=== PATIENT | female | born 1960 ===

== ENCOUNTER 2025-10-04 11:38 | Outpatient (REF) | payer OTHER, SELFPAY | END 2025-10-04 11:39 | disposition home or self-care (01) | LOC: HO.HPHYSR 11:38 | PROVIDERS: PCP Internal Medicine; Visit Provider Physical Medicine & Rehabilitation | DX: M54.16 Radiculopathy, lumbar region (principal) | CPT/HCPCS: 64483; J2003; J3301; Q9967 ==

== ENCOUNTER 2025-10-04 11:38 | Outpatient (AMB) | payer OTHER, SELFPAY ==
[2025-10-04 11:40] VITALS: BP 114/88; PULSE 79; TEMP 36.6; BMI 26.6
--- NOTE | 2025-10-04 11:40 | A.PHYSOV_ITS ---
Vital Signs 10/04/25 11:40 Height 5 ft 5 in Weight 160 lb BMI 26.6 BP 114/88 Pulse 79 Temp 97.8 F Intake Visit Reasons: Bilateral Lumbar Transforaminal Epidural L2 Intake Note: Patient is a 65 year old female in office today bilateral L2 transforaminal epidural injection. [employer] [place] Required: No Allergies morphine Allergy (Unknown, Verified 10/04/25 11:39) Unknown pollen extracts Allergy (Unknown, Verified 10/04/25 11:39) Unknown PFSH Medical History (Updated 10/04/25 @ 12:07 by Teofilo James DO) Lumbar radiculitis Surgical History (Updated 10/04/25 @ 11:44 by Caitie Hassan MA) History of tonsillectomy H/O: hysterectomy History of back surgery (Unknown) Social History (Updated 10/04/25 @ 11:45 by Caitie Hassan MA) Household Members Other:: Alcohol intake: current Alcohol intake frequency: 0-2 drinks per day Patient Tobacco Use Status: Former Tobacco user Use of substances other than those prescribed or required for medical reasons: No Substance Use Type: Marijuana Current occupational status: retired Physical Exam Vital Signs: Last Vital Signs Temp 97.8 F 10/04/25 11:40 Pulse 79 10/04/25 11:40 BP 114/88 10/04/25 11:40 BMI result Body Mass Index 26.6 Assessment & Plan Assessment & Plan (1) Lumbar radiculitis: Code(s): M54.16 - Radiculopathy, lumbar region Category: Medical Orders: Orders FL Gd Lumbar Transforaminal In Today M54.16 - Radiculopathy, lumbar region AMB Lumbar transforaminal Epidural Steroid Injection Today M54.16 - Radiculopathy, lumbar region Medications: New Kenalog (triamcinolone acetonide) 80 mg (2 mL) epidural ONCE 2 mL 0RF NS M54.16 - Radiculopathy, lumbar region Omnipaque 300 (iohexol) 3 mL epidural ONCE 10 mL 0RF NS M54.16 - Radiculopathy, lumbar region lidocaine (PF) 50 mg (5 mL) epidural ONCE 2 mL 0RF M54.16 - Radiculopathy, lumbar region Coding Diagnoses Lumbar radiculitis M54.16
--- OUTSIDE RECORDS SUMMARY | 2025-10-04 12:26 | XMS_ITS | Clinical Summary ---
Author Organization [facility] [address] [facility] Address [address] [place] [address] Phone Care Team Providers Care Blemish Remover Name Role Phone Haley Riggins MD Primary Care Prov ider Allergies Active Allergy Reactions Criticality Noted Date Comments Morphine 09/20/2017 Other Reaction(s): Rash/Dermatitis Pollen Extracts 08/25/2017 Medications cholecalciferol (VITAMIN D-3) 50 mcg (2,000 unit) capsule Take 2 capsules (4,000 Units total) by mouth 1 (one) time each day. Active chromium picolinate 400 mcg tablet Take 2 Tabs by mouth daily. Active cinnamon bark (CINNAMON ORAL) Take by mouth. Active diclofenac (Voltaren Arthritis Pain) 1 % topical gel Apply 2 g to affected area four times daily 0 Active flaxseed oiL oil Take 1 Cap by mouth daily. Active glucosamine-cho ndroit-vit C-Mn 500-400 mg capsule Take 1 capsule by mouth daily. Active LORATADINE-PSEU DOEPHEDRINE ORAL Take by mouth. Activ e magnesium aspart,citrate, oxide (Triple Magnesium Complex) 400 mg magnesium capsule Take 1 capsule by mouth 1 (one) time each day. Active multivitamin with iron Take 1 tablet by mouth daily. Active omeprazole (PriLOSEC) [address] capsule Take 1 capsule (20 mg total) by mouth 1 (one) time each day. 4 Active turmeric root extract 500 mg capsule Take 1 capsule by mouth 1 (one) time each day. Active azelastine (ASTELIN) 137 mcg (0.1 %) nasal spray Administer 1 spray into each nostril 2 (two) times a day. Use in each nostril as directed 30 mL 12 4 10/26/20 25 Active melatonin 3 mg tablet Take by mouth. Activ e sertraline (ZOLOFT) 50 mg tablet Take 1 tablet (50 mg total) by mouth 1 (one) time each day. 30 each 11 5 02/20/20 26 Active atorvastatin (LIPITOR) 10 mg tablet Take 1 tablet (10 mg total) by mouth 1 (one) time each day. 30 each 5 5 12/08/19 26 Active meloxicam (MOBIC) 15 mg tablet TAKE ONE TABLET BY MOUTH EVERY DAY 90 tablet 1 5 Active Active Problems Problem Noted Date Diagnosed Date Hypercholesterolemia 06/13/2025 Tinnitus of right ear 09/12/2023 Overview (09/22/2024): With sudden hearing loss in the right ear evaluated by ear nose and throat had steroid injections Obesity 07/13/2019 Lumbar radiculopathy, chronic 06/02/2018 Allergic rhinitis 08/25/2017 Obstructive sleep apnea 08/25/2017 Overview (09/22/2024): [facility] Polysomnogram: Date 09/04/2017; SE 80%; SM 82%; REM 6%; RDI 30 (AHI 20), worse in nonREM (RDI 31 - AHI 21), Central apneas 0; Obstructive apneas 75; Mixed apneas 1; hypopneas 49; RERAs 61; average oxygen saturation 96% (lowest 87% - without saturations <88% for 5% or more of study); PLMs 10. Faxed order, notes and sleep study to [phone] Encounters Date Type Department Care Team Description 08/08/2025 11:46 AM EDT - 08/08/2025 11:59 PM EDT Hospital Encounter [place] [id number] Acute pain of left shoulder Discharge Disposition: Home or Self Care 08/08/2025 11:30 AM EDT Office Visit Adult Medicine - [address] [phone] Donato Whitten PA Acute pain of left shoulder (Primary Dx) from Last 3 Months Immunizations Immunization Administration Dates Next Due Influenza Quadravalent, MDCK , 0.5ml, preservative free (Flucelvax) 6mo and older 09/12/2023,09/09/2022,10/15/2020 Influenza Quadravalent, MDCK , 0.5ml, with preservative (Flucelvax) 6mo and older 09/08/2018,08/25/2017 Pfizer (ages 12 & older) Bivalent, COVID-19 10/14 Pfizer SARS-CoV-2 COVID-19, mRNA, LNP-S, preservative free 10/26/2021 Td, Unspecified 04/11/2007 Surgical History Surgery Date Site/Laterality Comments HYSTERECTOMY PROCEDURE: HISTORICAL HYSTERECTOMY OTHER SURGICAL HISTORY 2018 PROCEDURE: LUMBAR SPINE FUSION, LAT TRANSVERSE Family History Medical History Relation Name Comments Alcohol abuse Brother 1 obesity Other: hepatitis c Brother 2 Heart failure Father arrhythmia Other: prostate cancer Maternal Grandfather Stroke Maternal Grandmother Parkinson's Disease Mother HTN, pac emaker Heart attack Paternal Grandmother passed 59 Other: A fib Sister Relation Name Status Comments Brother 1 Alive Brother 2 Alive Father Alive Maternal Grandfather Maternal Grandmother Mother Alive Paternal Grandfather Paternal Grandmother Sister Alive Social History Tobacco Use Types Packs/Day Years Used Date Smoking Tobacco: Former Smokeless Tobacco: Never Tobacco Cessation:Counseling Given: Not Answered Alcohol Use Standard Drinks/Week Comments Yes 0 (1 standard drink = 0.6 oz pur e alcohol) Housing Instability Answer Date Recorde d Are you worried that in the next 2 months you may not have stable housing? No 06/11/2025 Food Access & Nutrition Answer Date Rec orded Do you have access to a vari ety of food including fruits and vegetables? Yes 06/11/2025 Access to Healthcare Answer Date Record ed Within the last 3 months, elbert arredondo many times did you visit the emergency department for your medical care? 0 06/11/2025 Health Literacy Answer Date Recorded How often do you need to hav e someone help you when you read instructions, pamphlets, or other written material from your doctor or pharmacy? Never 06/11/2025 Caregiver: How often do you need to have someone help you when you read instructions, pamphlets, or other written material from your doctor or pharmacy? Not on file 06/11/2025 Financial Risk Answer Date Recorded How hard is it for you to pa y for the very basics like food, housing, medical care, and air conditioning / heating? Not very hard 06/11/2025 Transportation Answer Date Recorded Has the lack of transportati on kept you from meetings, work, or from getting things needed for daily living? No Has the lack of transportati on kept you from medical appointments or from getting medications? No 06/11/2025 Social Isolation Answer Date Recorded How often do you feel lonely or isolated from those around you? Sometimes 06/11/2025 Food Risk Answer Date Recorded Within the past 12 months we worried whether our food would run out before we got money to buy more. Never true 06/11/2025 Within the past 12 months th e food we bought just didn't last and we didn't have money to get more. Never true 06/11/2025 Dependent Care Answer Date Recorded Do you need help finding or paying for care for your loved ones. For example, child life specialist or elderly care for an older adult? No 06/11/2025 Education Answer Date Recorded Do you think completing more education or training, like finishing a GED, going to college, or learning a trade, would be helpful for you? No 06/11/2025 Employment and Income Answer Date Recor ded During the last four weeks, have you been actively looking for work? No 06/11/2025 Living Situation Answer Date Recorded What is your living situation? Unrecognized valu e 06/11/2025 Comments No Sex and Gender Information Value Date Recorded Sex Assigned at Not on file Legal Sex Female 3:28 AM EST Gender Identity Not on file Sexual Orientation Not on file Obstetrics History Last Filed Vital Signs Vital Sign Reading Time Taken Comments Blood Pressure 112/70 08/08/2025 11:24 AM EDT Pulse 80 08/08/2025 11:24 AM EDT Temperature 36.7 C (98.1 F) 08/08/2025 11:24 AM EDT Respiratory Rate - - Oxygen Saturation - - Inhaled Oxygen Concentration - - Weight 73.1 kg (161 lb 3.2 oz) 08/08/2025 11:24 AM EDT Height 162.6 cm (5' 4 ) 08/08/2025 11:24 AM EDT Body Mass Index 27.67 08/08/2025 11:24 AM EDT Plan of Treatment Upcoming Encounters Date Type Department Care Team (Late st Contact Info) Description 12/23/2025 3:30 PM EST Office Visit Adult Medicine - [place] [address] [place] [address] Haley Riggins MD [address] [place] [address] Health Maintenance Due Date Last Done Comments Influenza Vaccine (#1) 2025 , 09/09/2022, 10/15/2020, Additional history exists Zoster Vaccines (1 of 2) 11/14/2025 Pos tponed from 2011 (Not clinically appropriate to address at this time) Breast Cancer Screening 02/12/2027 02/12/2025 Cervical Cancer Screening: Pap Smear 04/26/2027 04/26/2024 Cholesterol Screening (Lipid Panel) 07/12/2030 07/12/2025, 06/07/2025, 04/26/2024, Additional history exists RSV Immunization Adult Patients (1 - 1-dose 75+ series) 2036 DTaP,Tdap,and Td Vaccines Discontinued 04/11/2007 Colorectal Cancer Screening: Colonoscopy Discontinued 11/15/2014 Hepatitis C Screening Completed 08/25/2017 COVID-19 Vaccine Discontinued 10/23/2022, , 03/25/2021, Additional history exists Depression Screening Completed 06/11/2025 Social Influencers of Health Screening Discontinued 06/11/2025 HIB Vaccines Aged Out No longer eligi ble based on patient's age to complete this topic HIV Screening Discontinued HPV Vaccines Aged Out No longer eligi ble based on patient's age to complete this topic Hepatitis A Vaccines Aged Out No long er eligible based on patient's age to complete this topic Hepatitis B Vaccines Aged Out No long er eligible based on patient's age to complete this topic IPV Vaccines Aged Out No longer eligi ble based on patient's age to complete this topic MMR Vaccines Aged Out No longer eligi ble based on patient's age to complete this topic Meningococcal ACWY Vaccine Aged Out N o longer eligible based on patient's age to complete this topic Meningococcal B Vaccine Aged Out No l onger eligible based on patient's age to complete this topic Pneumococcal Vaccine: 50+ Years Discontinued RSV Immunization Patients Under 20 months Aged Out No longer eligible based on patient's age to complete this topic Varicella Vaccines Aged Out No longer eligible based on patient's age to complete this topic Procedures Procedure Name Priority Date/Time Associated Diagnosis Comments XR SHOULDER 2+ VIEWS LEFT Routine 08/08/2025 11:57 AM EDT Acute pain of left shoulder CBC WITH AUTO DIFFERENTIAL Routine 07/12/2025 9:46 AM EDT Physical exam, annual LIPID PANEL WITH REFLEX TO DIRECT LDL Routine 07/12/2025 9:46 AM EDT Hypercholesterolem ia COMPREHENSIVE METABOLIC PANEL Routine 07/12/2025 9:46 AM EDT Hypercholesterolem ia CBC AND DIFFERENTIAL Routine 07/12/2025 9:46 AM EDT Physical exam, annual THYROID STIMULATING HORMONE WITH REFLEX TO FREE T4 AND FREE T3 Routine 07/12/2025 9:46 AM EDT Physical exam, annual HM PAP SMEAR Routine 04/26/2024 HEPATITIS C SCREENING Routine 08/25/2017 COLONOSCOPY Routine 11/15/2014 from Last 3 Months or Most Recently Relevant to Health Maintenance Results * XR Shoulder 2+ Views Left (08/08/2025 11:57 AM EDT) Anatomical Region Laterality Modality Upper Extremities, Shoulder Left Radi ographic Imaging 08/09/2025 1:31 AM EDT Narrative 08/09/2025 1:31 AM EDT Left shoulder, 4 views. History pain. There are mild degenerative changes in the AC joint and glenohumeral joint. There is no fractures, dislocations or abnormal soft tissue calcifications. CONCLUSIONS: Degenerative changes as detailed. -------- FINAL REPORT -------- Dictated By: Jennifer Matias Dictated Date: 08/09/2025 01:31 ET Assigned Physician: Jennifer Matias Reviewed and Electronically Signed By: Jennifer Matias Signed Date: 08/09/2025 01:31 ET Workstation ID: [id number] Transcribed By: Self Edit Transcribed Date: 08/09/2025 01:31 ET Procedure Note Jennifer Matias MD - 08/09/2025 Left shoulder, 4 views. History pain. There are mild degenerative changes in the AC joint and glenohumeraljoint. There is no fractures, dislocations or abnormal soft tissuecalcifications. CONCLUSIONS: Degenerative changes as detailed. -------- FINAL REPORT -------- Dictated By: Jennifer Matias Dictated Date: 08/09/2025 01:31 ET Assigned Physician: Jennifer Matias Reviewed and Electronically Signed By: Jennifer Matias Signed Date: 08/09/2025 01:31 ET Workstation ID: [id number] Transcribed By: Self Edit Transcribed Date: 08/09/2025 01:31 ET Donato CHEN IMG XR PROCEDURES Final Result * Thyroid stimulating hormone with reflex to free t4 and free t3 (07/12/2025 9:46 AM EDT) TSH 1.03 0.40 - 4.00 mcIU/mL LAB CHEMISTRY METHOD 07/12/2025 1:07 PM EDT [facility] Blood Venous blood specimen / Unknown Venipuncture / Unknown 07/12/2025 9:46 AM EDT 07/12/2025 9:46 AM EDT us Haley Riggins MD LAB BLOOD ORDERABL ES Final Result Performing Organization Address City/[facility]/ZIP Co de Phone Number [facility] [address] [place] [address], [place] [phone] * Lipid panel with reflex to direct LDL (07/12/2025 9:46 AM EDT) Cholesterol 175 0 - 200 mg/dL LAB CHEMISTRY METHOD 07/12/2025 12:15 PM EDT [facility] Triglycerides 98 0 - 150 mg/dL LAB CHEMISTRY METHOD 07/12/2025 12:15 PM EDT [facility] HDL 69 >=40 mg/dL [facility] LDL Calculated 86 0 - 100 mg/dL LAB CHEMISTRY METHOD 07/12/2025 12:15 PM EDT [facility] Comment:Estimated LDL Calcul ated using equation: Total cholesterol - HDL cholesterol - (Triglycerides/5) VLDL Cholesterol Won 19.6 mg/dL LAB CHEMISTRY METHOD 07/12/2025 12:15 PM EDT [facility] Non HDL Chol. (LDL+VLDL) 106 <145 mg/dL LAB CHEMISTRY METHOD 07/12/2025 12:15 PM EDT [facility] Chol/HDL Ratio 2.5 0.0 - 4.4 LAB CHEMISTRY METHOD 07/12/2025 12:15 PM [facility] Blood Venous blood specimen / Unknown Venipuncture / Unknown 07/12/2025 9:46 AM EDT 07/12/2025 9:46 AM EDT us Haley Riggins MD LAB BLOOD ORDERABL ES Final Result Performing Organization Address City/[facility]/ZIP Co de Phone Number [facility] [address] [place] [address], * (ABNORMAL) CBC auto differential (07/12/2025 9:46 AM EDT) [facility] WBC 7.6 4.8 - 10.8 K/mcL LAB HEMETOLOGY METHOD 07/12/2025 11:51 AM [facility] RBC 4.90(H) 3.80 - 4.80 M/mcL LAB HEMETOLOGY METHOD 07/12/2025 11:51 AM EDT [facility] Hemoglobin 13.8 11.5 - 16.0 g/dL LAB HEMETOLOGY METHOD 07/12/2025 11:51 AM [facility] Hematocrit 42.8 35.0 - 47.0 % LAB HEMETOLOGY METHOD 07/12/2025 11:51 AM [facility] MCV 88.1 79.0 - 98.0 FL LAB HEMETOLOGY METHOD 07/12/2025 11:51 AM [facility] MCH 28.4 27.0 - 32.0 pcg LAB HEMETOLOGY METHOD 07/12/2025 11:51 AM [facility] MCHC 32.2 32.0 - 37.0 g/dL LAB HEMETOLOGY METHOD 07/12/2025 11:51 AM [facility] RDW 13.2 11.0 - 15.0 % LAB HEMETOLOGY METHOD 07/12/2025 11:51 AM [facility] Platelets 213 130 - 400 K/mcL LAB HEMETOLOGY METHOD 07/12/2025 11:51 AM [facility] MPV 12.0(H) 7.0 - 11.0 FL LAB HEMETOLOGY METHOD 07/12/2025 11:51 AM [facility] NRBC 0.3 <1.0 % LAB HEMETOLOGY METHOD 07/12/2025 11:51 AM [facility] NRBC Absolute 0.02 <0.10 K/mcL LAB HEMETOLOGY METHOD 07/12/2025 11:51 AM [facility] Neutrophils Relative 67.6 % LAB HEMETOLOGY METHOD 07/12/2025 11:51 AM [facility] Lymphocytes Relative 22.8 % LAB HEMETOLOGY METHOD 07/12/2025 11:51 AM [facility] Monocytes Relative 6.8 % LAB HEMETOLOGY METHOD 07/12/2025 11:51 AM [facility] Eosinophils Relative 2.1 % LAB HEMETOLOGY METHOD 07/12/2025 11:51 AM [facility] Basophils Relative 0.4 % LAB HEMETOLOGY METHOD 07/12/2025 11:51 AM [facility] Immature Granulocytes Relative 0.3 % LAB HEMETOLOGY METHOD 07/12/2025 11:51 AM [facility] Neutrophils Absolute 5.14 1.50 - 7.00 K/mcL LAB HEMETOLOGY METHOD 07/12/2025 11:51 AM [facility] Lymphocytes Absolute 1.73 1.00 - 5.00 K/mcL LAB HEMETOLOGY METHOD 07/12/2025 11:51 AM [facility] Monocytes Absolute 0.52 0.20 - 1.00 K/mcL LAB HEMETOLOGY METHOD 07/12/2025 11:51 AM [facility] Eosinophils Absolute 0.16 0.00 - 0.50 K/mcL LAB HEMETOLOGY METHOD 07/12/2025 11:51 AM [facility] Basophils Absolute 0.03 0.00 - 0.20 K/mcL LAB HEMETOLOGY METHOD 07/12/2025 11:51 AM [facility] Immature Granulocytes Absolute 0.02 0.00 - 0.03 K/mcL LAB HEMETOLOGY METHOD 07/12/2025 11:51 AM [facility] Blood Venous blood specimen / Unknown Venipuncture / Unknown 07/12/2025 9:46 AM EDT 07/12/2025 9:46 AM EDT us Haley Riggins MD LAB BLOOD ORDERABL ES Final Result [facility] [address] [place] [address], [place] [phone] * (ABNORMAL) Comprehensive metabolic panel (07/12/2025 9:46 AM EDT) Sodium 138 133 - 145 mmol/L LAB CHEMISTRY METHOD 07/12/2025 12:15 PM [facility] Potassium 4.2 3.5 - 5.5 mmol/L LAB CHEMISTRY METHOD 07/12/2025 12:15 PM [facility] Chloride 104 96 - 110 mmol/L LAB CHEMISTRY METHOD 07/12/2025 12:15 PM [facility] CO2 28 21 - 32 mmol/L LAB CHEMISTRY METHOD 07/12/2025 12:15 PM [facility] Anion Gap 6 3 - 11 LAB CHEMISTRY METHOD 07/12/2025 12:15 PM [facility] Glucose 94 70 - 100 mg/dL LAB CHEMISTRY METHOD 07/12/2025 12:15 PM [facility] BUN 29(H) 5 - 25 mg/dL LAB CHEMISTRY METHOD 07/12/2025 12:15 PM [facility] Creatinine 0.74 0.50 - 1.10 mg/dL LAB CHEMISTRY METHOD 07/12/2025 12:15 PM [facility] eGFR 90 >=60 mL/min/1. 73m2 LAB CHEMISTRY METHOD 07/12/2025 12:15 PM [facility] Comment:Calculation based on the Chronic Kidney Disease Epidemiology Collaboration (CKD-EPI) equation refit without adjustment for race. BUN/Creatinine Ratio 39.2 LAB CHEMISTRY METHOD 07/12/2025 12:15 PM [facility] Calcium 9.2 8.5 - 10.5 mg/dL LAB CHEMISTRY METHOD 07/12/2025 12:15 PM [facility] AST (SGOT) 22 10 - 42 unit/L LAB CHEMISTRY METHOD 07/12/2025 12:15 PM [facility] ALT (SGPT) 24 10 - 60 unit/L LAB CHEMISTRY METHOD 07/12/2025 12:15 PM [facility] Alkaline Phosphatase 86 42 - 121 unit/L LAB CHEMISTRY METHOD 07/12/2025 12:15 PM [facility] Total Protein 6.7 6.0 - 8.0 g/dL LAB CHEMISTRY METHOD 07/12/2025 12:15 PM [facility] Albumin 3.9 3.2 - 5.0 g/dL LAB CHEMISTRY METHOD 07/12/2025 12:15 PM [facility] Total Bilirubin 0.5 0.0 - 1.4 mg/dL LAB CHEMISTRY METHOD 07/12/2025 12:15 PM [facility] Blood Venous blood specimen / Unknown Venipuncture / Unknown 07/12/2025 9:46 AM EDT 07/12/2025 9:46 AM EDT Haley Riggins MD LAB BLOOD ORDERABL ES Final Result [facility] [address] [place] [address], * Pap Smear (04/26/2024) Pap smear NO INTERPRETATION , ABSTRACTED Historical Provider HEALTH MAINTENANCE Final Result * Hepatitis C Screening (08/25/2017) Hepatitis C Screening ABSTRACTED Historical Provider HEALTH MAINTENANCE Final Result * Colonoscopy (11/15/2014) Colonoscopy NO INTERPRETATION , ABSTRACTED Anatomical Region Laterality Modality Other us Historical Provider HEALTH MAINTENANCE Final Result from Last 3 Months or Most Recently Relevant to Health Maintenance Insurance [facility] Care Teams Blemish Remover Relationship Specialty Start Date End Date Haley Riggins MD [address] [place] [phone] PCP - General Internal Medicine 06/14/17
--- OUTSIDE RECORDS SUMMARY | 2025-10-04 12:26 | XMS_ITS | Patient Health Record ---
[facility] Address [address] [place] [address] Care Team Providers Care Half Backer Name Role Phone Latanya KEITA, Haley Primary Care Provi sam Eliseo Case Unavailable [phone] Allergies Allergen (clinical drug ingredient) Drug/Non Drug Allergy documented on EMR Reaction Allergy Type Onset Date Status Animal dander Animal Dander (uncoded) hives, sneezing Allergy Active Molds (uncoded) hives,sneezing Allergy Active morphine Morphine Sulfate rash Drug Allergy Active Seasonale hives, sneezing Drug Allergy A ctive Reason For Referral No Information Medications Medication SIG (Take, Route, Frequency, Duration) Notes Start Date End Date Status Flaxseed Oil 1000 MG as directed Orally Active Osteo Bi-Flex Regular Strength Active Multivitamin Orally Once a day Active Cinnamon Active Black Cohosh 40 MG as directed Orally Active Vitamin D3 Active Physical Therapy . . . 2-3x/week; Durat ion: 3-4 weeks 05/15/2020 Active Meloxicam 15 MG 1 tablet Orally Once a day; Duration: 30 day(s) Active Diclofenac Sodium 1 % Transdermal; Duration: 7 Active Ginkgo Biloba 120 MG as directed Orally Active ZyrTEC Allergy 10 MG Orally Once a day Active Turmeric 500 MG Orally Acti ve Magnesium 250 MG Orally Once a day Active Social History Tobacco Use: Social History Observation Description Date Details (start date - stop date) Former Smoker NA - NA Tobacco Use/Smoking Question Answer Notes Are you a: former smoker Additional Findings: Tobacco Non-User Current no n-smoker Alcohol Screen Question Answer Notes Did you have a drink containing alcohol in the p ast year? Yes Points 0 Interpretation Negative Plan Of Treatment No Information Insurance Providers Payer Name Payer Address Payer Phone Subscriber Number Group Number Insured Name Patient Relationship to Insured Coverage Start Date Coverage End Date [facility] [address] [facility] [place] [address] [phone] [id number] Jm Jorge Self - patient is the insured Medical (General) History Medical History History ICD Code Back pain Allergic rhinitis Sleep apnea Arthritis Broken bones Headaches/Migraines Sciatica Chicken pox Surgical History Surgery Date(Month/Year) hysterectomy 1997 lumbar fusion 2018 tonsillectomy 1966
--- OUTSIDE RECORDS SUMMARY | 2025-10-04 12:26 | XMS_ITS | Patient Health Record ---
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 Name Role Phone OLU Drake, OLEG Primary Care Pr ovider Unavailable Alma Diaz Unavailable [phone] Allergies Allergen (clinical drug ingredient) Drug/Non Drug Allergy documented on EMR Reaction Allergy Type Onset Date Status morphine MORPHINE SULFATE Skin Rash Drug Allergy Active Results Component Value Reference Range Notes Urinalysis Reviewed date:05/02/2025 12:09:57 PM Interpretation: Performing Lab: Notes/Report: PH 5.0 PROTEIN trace GLUCOSE neg BLOOD neg Reason For Referral No Information Medications Medication SIG (Take, Route, Frequency, Duration) Notes Start Date End Date Status Meloxicam Active Sertraline HCl 50 MG 1 tablet Orally Once a day Active Melatonin 10 MG as directed Orally Active Tylenol 325 MG 1 tablet as needed Orally Not-Taking Flax Seed Oil Active Zinc Active Turmeric 500 MG Orally with Kiesha Powder 50mg Active Multivitamins 1 ORAL daily; Duration: -3 02/01/2012 Active Azelastine HCl Activ e MSM 1000 MG as directed Orally Not-Taking Glucosamine-Chondroiti n Sulf - Orally Active Claritin-D 12 Hour 5-120 MG 1 tablet as needed Orally every 12 hrs Active Omeprazole 20 MG Oral; Duration: 90 Days Active Social History Tobacco Use: Social History Observation Description Date Details (start date - stop date) Former Smoker NA - NA Sexual History Question Answer Notes Had sex in the past 12 months (vaginal, oral, or anal)? Yes with Men only Prevention strategies discussed: Other AUDIT-C (Standard) Question Answer Notes Did you have a drink contain ing alcohol in the past year? Yes How often did you have a dri nk containing alcohol in the past year? 2 to 4 times a month (2 points) How many drinks did you have on a typical day when you were drinking in the past year? 1 or 2 drinks (0 point) How often did you have six o r more drinks on one occasion in the past year? Never (0 point) Points 2 Interpretation Negative Tobacco Control (Standard) Question Answer Notes Tobacco use: Former smoker How long has it been since you last smoked? Grea ter than 10 years Problems Problem Type SNOMED Code ICD Code Onset Dates Problem Status W/U Status Risk Notes Problem Menopause (095214150) Menopausal and female climacteric states (N95.1) Active confirmed Problem Postmenopausal atrophic vaginitis (12769380) Postmenopausal atrophic vaginitis (N95.2) Active confirmed Problem Sleep apnea (00212077) Sleep apnea, unspecified (G47.30) Active confirmed Problem Screening for osteoporosis (131588797) Encounter for screening for osteoporosis (Z13.820) Active confirmed Problem Leiomyoma of uterus (22777442) Leiomyoma of uterus, unspecified (218.9) Active confirmed Other Problem Obesity (328804495) Obesity, unspecified (278.00) Active confirmed Major Problem Migraine (disorder) (36132200) Migraine, unspecified without mention of intractable migraine without mention of status migrainosus (346.90) Active confirmed Major Problem Allergic rhinitis (57803265) Allergic rhinitis, cause unspecified (477.9) Active confirmed Major Problem Esophageal reflux (221666986) Esophageal reflux (530.81) Active confirmed Major Problem Menopausal symptom (27972641) Symptomatic menopausal or female climacteric states (627.2) Active confirmed Major Problem Backache (553125377) Unspecified backache (724.5) Active confirmed Major Problem Medial epicondylitis of elbow (11054252) Medial epicondylitis of elbow (726.31) Active confirmed Other Problem Hypersomnia with sleep apnea (40780146) Hypersomnia with sleep apnea, unspecified (780.53) Active confirmed Major Problem Atypical squamous cells of undetermined significance on cervical Papanicolaou smear (014651899) Papanicolaou smear of cervix with atypical squamous cells of undetermined significance (ASC-US) (795.01) Active confirmed Diag Problem Gynecological examination normal (913676970927116) Routine gynecological examination (V72.31) Active confirmed Major Problem Screening for malignant neoplasm of colon (701964943) Special screening for malignant neoplasms, colon (V76.51) Active confirmed Major Vital Signs Temperature 97.3 degrees Fahrenheit 05/02/2025 Blood pressure diastolic 88 mm Hg 05/02/2025 Height 64.5 in 05/02/2025 Blood pressure systolic 144 mm Hg 05/02/2025 Weight 161 lbs 05/02/2025 BMI 27.21 kg/m2 05/02/2025 Encounters Encounter Location Date Provider Diagnosis [facility] [address] [place] [address] 05/02/2025 Alma Jamesanueva Encounter for gynecological examination (general) (routine) without abnormal findings Z01.419 ; Encounter for screening mammogram for malignant neoplasm of breast Z12.31 and Postmenopausal atrophic vaginitis N95.2 Assessments Encounter Date Diagnosis (ICD Code) Assessment Notes Treatment Notes Treatment Clinical Notes Section Notes 05/02/2025 Encounter for gynecological examination (general) (routine) without abnormal findings (ICD-10 - Z01.419) NO MORE PAP TESTS. 05/02/2025 Encounter for screening mammogram for malignant neoplasm of breast (ICD-10 - Z12.31) REGULAR MAMMOGRAMS AND SBE'S WERE RECOMMENDED. 05/02/2025 Postmenopausal atrophic vaginitis (ICD-10 - N95.2) DISCUSSED FINDINGS, DX AND TX OPTIONS. PAT IS ASYMPTOMATIC AND REFUSED INTRAVAGINAL ESTROGEN. Plan Of Treatment Pending Test Test Name Order Date MAMMOGRAM, SCREENING 04/20/2022 MAMMOGRAM, SCREENING 04/25/2023 MAMMOGRAM, SCREENING 04/27/2024 MAMMOGRAM, SCREENING 05/02/2025 BONE DENSITY 04/25/2023 BONE DENSITY 04/27/2024 MM Digital Mammo Screening 04/27/2024 MM Digital Mammo Screening 04/25/2023 MM Digital Mammo Screening 04/17/2020 MM Digital Mammo Screening 04/20/2021 MM Digital Mammo Screening 04/20/2022 MM Digital Mammo Screening 05/02/2025 Next Appt Details Provider Name:Alma sanderson, 05/13/2026 08:20:00 AM, [address], [address], [place], [address], Insurance Providers Payer Name Payer Address Payer Phone Subscriber Number Group Number Insured Name Patient Relationship to Insured Coverage Start Date Coverage End Date [facility] [address] [facility] [place] [id number] [phone] [id number] Self - patient is the insured Medical (General) History Medical History History ICD Code Atypical squamous cells of u ndetermined significance on cytologic smear of cervix (ASC-US) R87.610 Allergic rhinitis, unspecified J30.9 Menopausal and female climacteric states N95.1 Other dorsalgia M54.89 Gastro-esophageal reflux disease without esophagitis K21.9 Migraine, unspecified, not intractable, without status migrainosus G43.909 Obesity, unspecified E66.9 Sleep apnea, unspecified G47.30 Leiomyoma of uterus, unspecified D25.9 Medial epicondylitis, unspecified elbow M77.00 Inconclusive mammogram R92.2 Postmenopausal atrophic vaginitis N95.2 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
== END 2025-10-04 12:24 | disposition home or self-care (01) ==
PROVIDERS: PCP Internal Medicine; Visit Provider Physical Medicine & Rehabilitation
DX: M54.16 Radiculopathy, lumbar region (principal)
CPT/HCPCS: 64483

== ENCOUNTER 2025-10-24 11:45 | Outpatient (AMB) | payer OTHER, SELFPAY ==
--- NOTE | 2025-10-24 11:48 | MHC.OFFVIS ---
Vital Signs 10/24/25 11:50 Height 5 ft 5 in Weight 160 lb BMI 26.6 Intake Visit Reasons: F/U after injection L2 Intake Note: Patient is a 65 year old female in office today for a follow up after Bilateral L2 Transforaminal Epidural 10/04/25 states that it is helping no pain Allergies morphine Allergy (Unknown, Verified 10/24/25 11:50) Unknown pollen extracts Allergy (Unknown, Verified 10/24/25 11:50) Unknown HPI Comments Details: History of Present Illness The patient is a 65-year-old female presenting for a follow-up visit after a pain injection. She received her second recent injection in September, with the first one not providing long-lasting relief. She underwent bilateral L2 TFESI in September with 90% reduction of her pain. She is able to stand for longer periods of time and ambulate longer distances. She is overall very happy with her results. Approximately seven years ago, the patient received a series of injections, with the third one providing nine months of relief before she underwent surgery. She reports maintaining an active lifestyle, including walking, biking, and swimming. Pain Description - The patient reports 80-90% improvement in her pain since her last injection. - She occasionally experiences a twinge of pain in the morning upon waking. - Exacerbating factors include sitting for too long. - Alleviating factors include movement and stretching. [facility] Medical History (Updated 10/04/25 @ 12:07 by Teofilo James DO) Lumbar radiculitis Surgical History (Updated 10/04/25 @ 11:44 by Caitie Hassan MA) History of tonsillectomy H/O: hysterectomy History of back surgery (Unknown) Social History (Updated 10/04/25 @ 11:45 by Caitie Hassan MA) Household Members Other:: Alcohol intake: current Alcohol intake frequency: 0-2 drinks per day Patient Tobacco Use Status: Former Tobacco user Substance Use Type: Marijuana Current occupational status: retired Review of Systems Narrative Review of Systems - Musculoskeletal: Reports an occasional twinge of pain in the morning or after prolonged sitting. Physical Exam Exam Exam: Physical Exam Lumbar Spine: She is less tender to the lower lumbar facets. Full range of motion of the lumbar spine. Special Tests: Lhermittes sign was negative Heel Toe walk is normal Left straight leg raise: Negative Right straight leg raise: Negative Special tests Michael test is negative Ganslen's test is negative SI Joint compression test negative Kelli test negative Piriformis stretch is negative Lower Extremities: Full range of motion bilateral lower extremities. No calf pain or edema. Neuro: Sensation: Intact to lower extremities bilaterally Strength L2 (Psoas): 5/5 on the left and 5/5 on the right. L3 (Quads): 5/5 on the left and 5/5 on the right. L4 (Ant tibialis): 5/5 on the left and 5/5 on the right. L5 (EHL) 5/5 on the left and 5/5 on the right. S1 (Gastroc): 5/5 on the left and 5/5 on the right. DTR L4: (Patellar) Left 2 Right 2 S1: (Achilles) Left 2 Right 2 Babinski Downgoing No pathologic clonus. No involuntary movement. Vital Signs: BMI result Body Mass Index 26.6 Assessment & Plan Assessment & Plan (1) Lumbar radiculitis: Code(s): M54.16 - Radiculopathy, lumbar region Category: Medical Plan Pain Management - Analgesia: The patient reports 80-90% pain improvement following her most recent injection. - Activities of Daily Living: The patient reports her pain is better as long as she keeps moving and stretching. - Pain is triggered by prolonged sitting. - She has been able to reduce physical strain as her nephew has taken over household duties. Plan Patient was informed and verbally consented to the use of an ambient scribe for clinic note documentation during this visit. 1. Chronic Pain The patient has experienced an 80-90% improvement in her chronic pain following her most recent injection in September, bilateral L2 TFESI. This was her second recent injection, as the first one did not provide lasting relief. The plan is to monitor her symptoms, with the option to repeat the injection at a four-month interval if necessary. She is encouraged to continue her current exercise regimen, including walking, biking, and swimming, while avoiding activities that exacerbate her pain, such as heavy lifting. Discussion Notes I reviewed the patient's response to her recent pain injection, and she reports significant improvement of 80-90%. We discussed that while the ideal duration of relief is three to six months, this injection is repeatable every four months if her symptoms return. I encouraged her to continue with her exercise activities such as walking, biking, and swimming, and to avoid behaviors that may trigger her pain, such as lifting heavy objects. Patient Instructions - Continue with your regular activities like walking, biking, and swimming. - Avoid lifting heavy items to prevent your pain from returning. - Try to avoid sitting for long periods, and keep moving and stretching to manage discomfort. - If your pain returns, you can receive another injection in about four months. - Please let us know if you need anything. Coding Level of Care Code Tele Est Pt Level 3 (86861) Diagnoses Lumbar radiculitis M54.16
[2025-10-24 11:50] VITALS: BMI 26.6
== END 2025-10-24 12:10 | disposition home or self-care (01) ==
LOC: HO.HPHYS 11:46
PROVIDERS: PCP Internal Medicine; Visit Provider Physician Assistant
DX: M54.16 Radiculopathy, lumbar region (principal)
CPT/HCPCS: 99213